=== PATIENT | male | born 1965 | race African-American/Black ===

== ENCOUNTER 2023-10-04 16:17 | Inpatient (IN) | payer OTHER ==
[2023-10-04 17:51] VITALS: BMI 16.8
[2023-10-04] MEDS ORDERED: IBUPROFEN 400 MG TABLET (FP) PO PRN (20:08)
[2023-10-04] MEDS ORDERED: METHOCARBAMOL 500 MG TABLET PO PRN (20:08)
[2023-10-04] MEDS ORDERED: BENZONATATE 200 MG CAPSULE PO PRN (20:08)
[2023-10-04] MEDS ORDERED: POLYETHYLENE GLYCOL (HEALTHYLAX) 3350 17 GM PACKET PO PRN (20:08)
[2023-10-04] MEDS ORDERED: MAG HYDROX/AL HYDROX/SIMETH 30 ML UNIT-DOSE CUP PO PRN (20:08)
[2023-10-04] MEDS ORDERED: ACETAMINOPHEN 325 MG TABLET (FP) PO PRN (20:08)
[2023-10-04] MEDS ORDERED: hydrOXYzine PAMOATE 25 MG CAPSULE (FP) PO PRN (20:08)
[2023-10-04] MEDS ORDERED: guaiFENesin 600 MG TABLET.ER (FP) PO PRN (20:08)
[2023-10-04] MEDS ORDERED: ONDANSETRON *ODT* 4 MG TABLET SL PRN (20:08)
[2023-10-04] MEDS ORDERED: BISMUTH SUBSALICYLATE 524 MG/30 ML PO PRN (20:08)
[2023-10-04] MEDS ORDERED: NALOXONE HCL 0.4 MG/ML VIAL IM PRN (20:08)
[2023-10-04] MEDS ORDERED: MAGNESIUM HYDROX 2400MG/30ML ORAL SUSPENSION 30 ML CUP PO PRN (20:08)
[2023-10-04] MEDS ORDERED: DICYCLOMINE HCL 10 MG CAPSULE PO PRN (20:08)
[2023-10-04] MEDS ORDERED: NALOXONE HCL (KLOXXADO) 8 MG SPRAY NS PRN (20:08)
[2023-10-04] MEDS ORDERED: LOPERAMIDE HCL 2 MG CAPSULE PO PRN (20:08)
[2023-10-04] MEDS ORDERED: BENZOCAINE/MENTHOL (CHLORASEPTIC ) LOZENGE MM PRN (20:08)
[2023-10-04] MEDS ORDERED: IBUPROFEN 600 MG TABLET (FP) PO PRN (20:08)
[2023-10-04] MEDS: MELATONIN 5 MG TABLETS PO SCH (21:38)
[2023-10-04] MEDS: THIAMINE 100 MG TABLET PO SCH (21:38)
[2023-10-05] MEDS: PRENATAL VITAMINS W/ FOLIC ACID TABLET (FP) PO SCH (10:12)
[2023-10-05 11:04] LABS: CHLORIDE 108 mmol/L (98-107); POTASSIUM 3.2 mmol/L (3.5-5.1); SODIUM 139 mmol/L (136-145)
[2023-10-05 11:08] LABS: CALCIUM 8.3 mg/dL (8.5-10.1); GLUCOSE,RANDOM 93 mg/dL (74-106)
[2023-10-05 11:09] LABS: ALBUMIN 2.9 g/dl (3.4-5.0); ANION GAP 2 mmol/L (4-13); BLOOD UREA NITROGEN 26.3 mg/dL (7-18); CO2 29 mmol/L (21-32)
[2023-10-05 11:10] LABS: HEMOGLOBIN 8.3 GM/dL (11.7-16.9); MCH 31.6 pg (25.7-33.7); MCHC 35.8 g/dl (32.0-35.9); MEAN CELL VOLUME 88.1 fl (80-96); MEAN PLT VOLUME 7.2 fl (7.5-11.1); PLATELET COUNT 343 10^3/uL (134-434); RBC 2.62 M/mm3 (4.00-5.60); RDW 18.3 % (11.9-15.9); WHITE BLOOD COUNT 4.1 K/mm3 (4.0-10.0)
[2023-10-05 11:11] LABS: CREATININE 0.8 mg/dL (0.55-1.3); SGOT/AST 18 U/L (15-37); SGPT/ALT 13 U/L (13-61)
[2023-10-05 11:13] LABS: BILIRUBIN,TOTAL 1.9 mg/dL (0.2-1); TOT PROT 5.9 g/dl (6.4-8.2)
[2023-10-05 11:14] LABS: ALK PHOS 67 U/L (45-117)
[2023-10-05] MEDS: methaDONE HCL 10 MG TABLET PO ONE (11:26)
[2023-10-05] MEDS ORDERED: methaDONE HCL 10 MG TABLET PO PRN (12:42)
[2023-10-05] MEDS: cloNIDine HCL 0.1 MG TABLET PO SCH (13:26)
[2023-10-05] MEDS ORDERED: POTASSIUM CHLORIDE ORAL LIQUID 20 MEQ/15 ML PO ONE (14:30)
[2023-10-05] MEDS: POTASSIUM CHLORIDE ORAL LIQUID 20 MEQ/15 ML PO ONE ×2 (15:48→17:50)
[2023-10-06] MEDS: methaDONE 40 MG, methaDONE 10 MG PO ONE (05:39)
[2023-10-06 13:10] LABS: IRON SERUM 192 ug/dL (50-175)
[2023-10-06 13:20] LABS: TOTAL IRON BINDING CAPACITY 222 ug/dL (250-450)
[2023-10-07] MEDS ORDERED: cloNIDine HCL 0.1 MG TABLET PO PRN
[2023-10-07] MEDS: methaDONE 40 MG, methaDONE 20 MG PO ONE (05:48)
[2023-10-08] MEDS: methaDONE 40 MG, methaDONE 30 MG PO ONE (05:36)
[2023-10-09] MEDS: methaDONE HCL 40 MG DISPERSABLE TABLET PO ONE (05:36)
[2023-10-10] MEDS: methaDONE 80 MG, methaDONE 10 MG PO ONE (05:47)
[2023-10-10 09:37] VITALS: BP 115/61; PULSE 68; RESP 18; TEMP 97.3
== END 2023-10-10 10:55 | disposition other institution (70) | DRG 773 ==
LOC: YASAS 16:17 → Y6N 20:04
PROVIDERS: ADMIT Allergy & Immunology; ATTEND Surgery
PROC: HZ2ZZZZ Detoxification Services for Substance Abuse Treatment (ICD-10-PCS; principal; 2023-10-04)
DX: F11.23 Opioid dependence with withdrawal (principal); F10.20 Alcohol dependence, uncomplicated; F17.210 Nicotine dependence, cigarettes, uncomplicated; E87.6 Hypokalemia; D64.9 Anemia, unspecified; D58.0 Hereditary spherocytosis
CPT/HCPCS: 36415; 71046-TC-FY; 80053; 80305; 80307; 82607; 82728; 82747; 83540; 83550; 84132; 85014; 85027; 86780; 93005; 93010